=== PATIENT | female | born 1970 | race Caucasian/White ===

== ENCOUNTER 2018-09-19 20:51 | Emergency (ER) | payer BC ==
[2018-09-19] MEDS ORDERED: AMOXICILLIN/POTASSIUM CLAV 875MG/125MG TABLET PO ONE (21:01)
[2018-09-19] MEDS ORDERED: Diph,Pert(Acell),Tet Vac 0.5 ML SYR IM ONE (21:06)
--- NOTE | 2018-09-19 21:08 | Emergency Department Record ---
History of Present Illness - General Chief Complaint: Laceration(s) Stated Complaint: LACERATION ON RT INDEX FINGER Time Seen by Provider: 09/19/18 20:55 Source: Patient Mode of Arrival: Ambulatory Limitations: No limitations - History of Present Illness Initial Commments: 48 yo female presents to ED for evaluation of a laceration to the right index finger sustained when she accidentally struck her hand on her dog's mouth resulting in laceration from the animal's teeth. Patient reports she then "passed out" for several seconds following her injury. Patient denies other injury on examination, and denies previous syncopal episodes. Patient reports that her ears were ringing, saw spots prior to passing out. Patient also reports that she has been intermittently fasting for approximately 1 year. Patient denies health problems at her baseline, reports her last tetanus was approximately 15 years ago. Onset/Timin -: Minutes(s) Extremity Location: Right: Hand Place: Home Context: Accidental, Other (Dog-bite injury) Treatments Prior to Arrival: Bandage - Rodney Coma Scale Eye Response: (4) Open spontaneously Motor Response: (6) Obeys commands Verbal Response: (5) Oriented Rodney Total: 15 - Related Data Hx Tetanus Toxoid Vaccination: Yes Patient Tetanus UTD (within 5 yrs): No Previous Rx's Medication Instructions Recorded Amoxicillin/Potassium Clav 1 tab PO BID #19 tab 09/19/18 [Augmentin 875-125 Tablet] Allergies Allergy/AdvReac Type Severity Reaction Status Date / Time No Known Allergies Allergy Unverified 09/16/16 16:50 Review of Systems Constitutional: Denies: Chills, Fever, Malaise, Night sweats Eyes: Denies: Eye discharge, Eye pain ENT: Denies: Congestion, Ear pain, Epistaxis Respiratory: Denies: Cough, Dyspnea Cardiovascular: Reports: Syncope. Denies: Chest pain, Dyspnea on exertion Endocrine: Denies: Fatigue, Heat or cold intolerance Gastrointestinal: Denies: Abdominal pain, Nausea, Vomiting Genitourinary: Denies: Incontinence, Retention Musculoskeletal: Denies: Arthralgia, Back pain Skin: Reports: Other (Finger laceration to the right index finger). Denies: Bruising, Change in color Neurological: Denies: Abnormal gait, Confusion, Headache, Seizure Psychiatric: Denies: Anxiety Hematological/Lymphatic: Denies: Anemia, Blood Clots Physical Exam - General General Appearance: Alert, Oriented x3, Cooperative, Mild distress Limitations: No limitations - Head Head exam: Atraumatic, Normocephalic, Normal inspection Head exam detail: negative: Abrasion, Contusion, Guillaume's sign, General tenderness, Hematoma, Laceration - Eye Eye exam: Normal appearance. negative: Conjunctival injection, Periorbital swelling, Periorbital tenderness, Scleral icterus - ENT Ear exam: negative: Auricular hematoma, Auricular trauma Nasal Exam: negative: Active bleeding, Discharge, Dried blood, Foreign body Mouth exam: negative: Drooling, Laceration, Muffled voice, Tongue elevation - Neck Neck exam: Normal inspection. negative: Meningismus, Tenderness - Respiratory Respiratory exam: Normal lung sounds bilaterally. negative: Rales, Respiratory distress, Rhonchi, Stridor - Cardiovascular Cardiovascular Exam: Regular rate, Normal rhythm, Normal heart sounds - GI/Abdominal GI/Abdominal exam: Soft. negative: Rebound, Rigid, Tenderness - Rectal Rectal exam: Deferred - exam: Deferred - Extremities Extremities exam: Tenderness, Other (Stellate laceration involving the palmar aspect of the right index finger overlying the PIP, bleeding controlled, no tendon laceration is visualized on examination.). negative: Calf tenderness, Pedal edema - Back Back exam: Denies: CVA tenderness (R), CVA tenderness (L) - Neurological Neurological exam: Alert, Normal gait, Oriented X3 - Psychiatric Psychiatric exam: Normal affect, Normal mood - Skin Skin exam: Normal color. negative: Abrasion Type of lesion: negative: abrasion Course Vital Signs 09/19/18 20:57 Temperature 97.9 F Pulse Rate [ 68 Pulse Ox Probe] Respiratory 20 Rate Blood Pressure 130/81 [Left Arm] Pulse Ox 99 - Reevaluation(s) Reevaluation #1: 09/19/18 21:09 Patient was seen and examined Discussed risks and benefits of dog-bite laceration closures with the patient and offered to "tack the wound" back together leaving the (3) ends of her stellate wound open, patient declined stating she would prefer the wound to heal by secondary intention. Will irrigate the wound extensively and initiate antibiotic prophylaxis with Augmentin as discussed. Reevaluation #2: 09/19/18 21:13 EKG: NSR 63 Normal axis, normal intervals No acute ST-T wave changes at this time Reevaluation #3: 02/16/19 21:35 Laboratory studies were reviewed, syncope likely vasovagal given her symptoms following finger laceration injury. Patient appears stable for discharge with dressing changes as directed. Medical Decision Making - Lab Data Result diagrams: 09/19/18 21:12 09/19/18 21:12 Disposition Disposition: Discharge Clinical Impression: Dog bite of extremity, Syncope and collapse Disposition: Home, Self-Care Condition: (2) Stable Instructions: Animal Bite (ED) Additional Instructions: Return to ED if your symptoms worsen or if you have any concerns. Augmentin as directed. Follow-up with your family doctor in 3-5 days as directed. Prescriptions: Amoxicillin/Potassium Clav [Augmentin 875-125 Tablet] 1 tab PO BID #19 tab Forms: Patient Portal Access Time of Disposition: 21:13 Quality - Quality Measures Quality Measures: N/A - Blood Pressure Screening Does Patient Have Any of the Following: No Blood Pressure Classification: Pre-Hypertensive BP Reading Systolic Measurement: 130 Diastolic Measurement: 81 Screening for High Blood Pressure: < Pre-Hypertensive BP, F/U Documented > [ [id number]] Pre-Hypertensive Follow-up Interventions: Referral to alternative/primary care provider.
[2018-09-19 21:17] LABS: BASO % 0.3 % (0-6); EOS % 2.7 % (0-6); GRAN % 58.7 % (47-80); HEMATOCRIT 40.4 % (35.0-47.0); HEMOGLOBIN 14.4 gm/dl (11.6-16.0); LYMPH % 30.8 % (16-45); MEAN CELL VOLUME 81.1 fl (81-97); MEAN CORPUSCULAR HEMOGLOBIN 28.9 pg (27-33); MEAN CORPUSCULAR HGB CONC 35.6 g/dl (32-36); MEAN PLATELET VOLUME 8.3 fl (7.4-10.4); MONO % 7.5 % (0-9); PLATELET COUNT 235 K/uL (130-400); RED BLOOD COUNT 4.98 M/uL (3.80-5.40); RED CELL DISTRIBUTION WIDTH 12.6 % (11.5-14.5); WHITE BLOOD COUNT W/O DIFF 7.3 K/uL (4.2-12.2)
[2018-09-19 21:27] LABS: BLOOD UREA NITROGEN 15 mg/dL (6-20); CREATININE 0.7 mg/dL (0.5-0.9); EST GLOMERULAR FILTRATION RATE > 60 mL/min; TOTAL PROTEIN 7.3 g/dL (6.6-8.7)
[2018-09-19 21:29] LABS: GLUCOSE,RANDOM 137 mg/dL (74-109)
[2018-09-19 21:32] LABS: ALB/GLOB RATIO 1.6 (1.1-1.8); ALBUMIN 4.5 g/dL (4.0-5.0); ALKALINE PHOSPHATASE 77 U/L (45-87); ALT/SGPT 13 U/L (<33); AST/SGOT 14 U/L (10.0-35.0)
== END 2018-09-19 21:39 | disposition home or self-care (01) ==
LOC: ER 20:51
DX: S61.210A Laceration without foreign body of right index finger without damage to nail, initial encounter (principal); R55 Syncope and collapse; W54.0XXA Bitten by dog, initial encounter; Y92.009 Unspecified place in unspecified non-institutional (private) residence as the place of occurrence of the external cause
CPT/HCPCS: 80053; 85025; 90715; 93005; 93010; 96372; 99284